=== PATIENT | female | born 1990 | race Hispanic/Latino ===

== ENCOUNTER 2022-05-14 10:39 | Inpatient (IN) | payer BC ==
[2022-05-14] MEDS ORDERED: Betamet Acet/Betamet Na Ph 30 MG/5 ML VIAL ONE (11:25)
[2022-05-14] MEDS ORDERED: hydrALAZINE 20 MG/ML VIAL ONE (11:26)
[2022-05-14] MEDS ORDERED: Magnesium Sulfate 20 gm/500 ml 20 GM/500 ML BAG ONE (11:26)
[2022-05-14] MEDS ORDERED: hydrALAZINE 20 MG/ML VIAL SLOW IVP PRN ×2 (11:34)
[2022-05-14] MEDS ORDERED: Acetaminophen 500 MG TAB PO PRN (11:34)
[2022-05-14] MEDS ORDERED: Ondansetron PF 4 MG/2 ML Vial IVP PRN (11:34)
[2022-05-14] MEDS ORDERED: Calcium Gluc 4.6 MEQ/10 ML (100 MG/ML) SLOW IVP PRN (11:34)
[2022-05-14] MEDS ORDERED: Butorphanol Tartrate 1 MG/ML VIAL SLOW IVP PRN (11:34)
[2022-05-14] MEDS ORDERED: Lorazepam 2 MG/ML VIAL SLOW IVP PRN (11:34)
[2022-05-14] MEDS ORDERED: Promethazine HCl 25 MG/ML VIAL IM PRN (11:34)
[2022-05-14] MEDS ORDERED: Labetalol HCl 100 MG/20 ML VIAL SLOW IVP PRN (11:34)
[2022-05-14 12:20] LABS: Hemoglobin 12.4 g/dL (12.0-15.5); Mean Corpuscular HGB CONC 35.4 g/dL (32.0-36.0); Mean Corpuscular Hemoglobin 30.5 pg (27.0-33.0); Mean Platelet Volume 12.4 fl (7.4-10.4); Platelet Count 203 10x3/uL (150-450); Red Blood Cell (RBC) Count 4.07 10x6/uL (3.90-5.03); White Blood Cell (WBC) Count 7.7 10x3/uL (3.5-10.5)
[2022-05-14 12:34] LABS: ALT (SGPT) 21 U/L (8-55); AST (SGOT) 23 U/L (5-34); Albumin 3.7 g/dL (3.5-5.0); Alkaline Phosphatase 98 U/L (40-110); Anion Gap 14 mmol/L (10-20); BUN (Urea Nitrogen) 14 mg/dL (7.0-18.7); Bilirubin, Total 0.2 mg/dL (0.2-1.2); Calc. Creatinine Clearance 0 mL/min (70-130); Calcium 9.8 mg/dL (7.8-10.44); Carbon Dioxide 21 mmol/L (22-29); Chloride 108 mmol/L (98-107); Estimated GFR 123; Globulin 3.2 g/dL (2.4-3.5); Glucose 78 mg/dL (70-105); Potassium 4.3 mmol/L (3.5-5.1); Protein, Total 6.9 g/dL (6.0-8.3); Sodium 139 mmol/L (136-145)
[2022-05-14 12:55] LABS: Syphilis Antibody Nonreactive (Nonreactive); Syphilis Antibody Index 0.04 S/CO (<1.00 Non-Reactive)
[2022-05-14 13:40] LABS: HBSAg Index 0.28 S/CO (0-0.99); Hep B Surf Ag Non-Reactive S/CO (NonReactive)
[2022-05-14 16:43] LABS: Amphetamine Not Detected (NotDetected); Barbiturates Screen Not Detected (NotDetected); Benzodiazepine Screen Not Detected (NotDetected); Cocaine Metabolite Screen Not Detected (NotDetected); Methadone Not Detected (NotDetected); Methamphetamine Not Detected (NotDetected); Opiate Screen Not Detected (NotDetected); Oxycodone Screen Not Detected (NotDetected); Phencyclidine (PCP) Not Detected (NotDetected); THC/Cannabinoid Screen Not Detected (NotDetected); Tricyclic Screen Not Detected (NotDetected)
[2022-05-14] MEDS: Magnesium Sulfate 20 gm/500 ml 20 GM/500 ML BAG IVPB SCH (20:48)
[2022-05-14 21:01] LABS: Bilirubin Neg (Negative); Blood, Urine 250 (Negative); Glucose, Urine (Dipstick) Normal (Negative); Ketone, Urine 15 mg/dL (Negative); Leukocyte 100 (Negative); Nitrite Negative (Negative); Protein, Urine (Dipstick) 30 mg/dl (Neg-Trace); Urobilinogen Normal mg/dL (Less than 2)
[2022-05-14 21:03] LABS: Clarity Slightly Cloudy (Clear); Urine Culture Reflex No No
[2022-05-14 21:13] LABS: Bacteria/HPF None Seen HPF (None Seen); RBC/HPF 21-50 HPF (0-3); Squamous Epithelial 0-3 HPF (0-3); WBC/HPF 0-3 HPF (0-3)
[2022-05-14 21:32] LABS: #Monocytes 0.2 10x3/uL (0.0-1.1); #Neutrophils 9.2 10x3/uL (1.5-8.4); %Basophils 0.1 % (0.0-2.0); %Lymphocytes 11.8 % (18.0-47.0); %Monocytes 1.4 % (0.0-10.0); %Neutrophils 86.1 % (40.0-75.0); Hemoglobin 13.1 g/dL (12.0-15.5); Mean Corpuscular HGB CONC 34.9 g/dL (32.0-36.0); Mean Platelet Volume 11.8 fl (7.4-10.4); Platelet Count 224 10x3/uL (150-450); RBC Distribution Width 14.2 % (11.5-14.5); Red Blood Cell (RBC) Count 4.36 10x6/uL (3.90-5.03); White Blood Cell (WBC) Count 10.7 10x3/uL (3.5-10.5)
[2022-05-14 21:51] LABS: ALT (SGPT) 20 U/L (8-55); AST (SGOT) 23 U/L (5-34); Albumin 3.8 g/dL (3.5-5.0); Alkaline Phosphatase 100 U/L (40-110); Anion Gap 15 mmol/L (10-20); BUN (Urea Nitrogen) 9 mg/dL (7.0-18.7); Bilirubin, Total 0.2 mg/dL (0.2-1.2); Calc. Creatinine Clearance 0 mL/min (70-130); Calcium 8.4 mg/dL (7.8-10.44); Carbon Dioxide 17 mmol/L (22-29); Chloride 104 mmol/L (98-107); Estimated GFR 124; Globulin 3.5 g/dL (2.4-3.5); Glucose 103 mg/dL (70-105); Potassium 3.9 mmol/L (3.5-5.1); Protein, Total 7.3 g/dL (6.0-8.3); Sodium 132 mmol/L (136-145)
[2022-05-14 22:03] VITALS: BMI 32.1
[2022-05-14 22:05] LABS: D-Dimer Test 0.98 mg/L FEU (0.19-0.50); INR-International Normal Ratio 0.8; PTT 24.8 sec (22.0-33.0); Prothrombin Time 8.8 sec (9.5-12.1)
[2022-05-14 22:16] LABS: SARS-CoV-2 NAA Rapid Test Not Detected (NotDetected)
[2022-05-15] MEDS: Lactated Ringer's 1,000 ML IV SCH ×2 (00:04→00:08)
[2022-05-15] MEDS: Betamet Acet/Betamet Na Ph 30 MG/5 ML VIAL IM SCH ×2 (00:04→13:52)
[2022-05-15] MEDS: Magnesium Sulfate 20 gm/500 ml 20 GM/500 ML BAG IVPB SCH (07:12)
[2022-05-15 13:49] LABS: Magnesium 5.8 mg/dL (1.6-2.6)
[2022-05-15] MEDS ORDERED: Dextrose 50% Abboject 50 ML SYRINGE SLOW IVP PRN (18:24)
[2022-05-15] MEDS ORDERED: Dextrose 5% in Water 1,000 ML IV PRN (18:24)
[2022-05-15] MEDS ORDERED: HumaLOG 300 UNITS/3 ML VIAL SC PRN (18:24)
[2022-05-15] MEDS ORDERED: Zolpidem Tartrate 5 MG TAB PO SCH (22:15)
[2022-05-16] MEDS: Magnesium Sulfate 20 gm/500 ml 20 GM/500 ML BAG IVPB SCH ×2 (00:53→19:31)
[2022-05-16] MEDS ORDERED: CEFAZOLIN 2 GM VIAL ONE (09:34)
[2022-05-16] MEDS ORDERED: Sodium Chloride 0.9% 100 ML ONE (09:35)
[2022-05-16] MEDS ORDERED: Famotidine/PF 20 mg/2ml Vial ONE (10:34)
[2022-05-16] MEDS: Lactated Ringer's 1,000 ML IV SCH (10:40)
[2022-05-16] MEDS ORDERED: Morphine PF 10 MG/10 ML VIAL ONE (11:46)
[2022-05-16] MEDS ORDERED: Oxytocin 10 UNITS/ML VIAL ONE (11:47)
[2022-05-16] MEDS ORDERED: Ondansetron PF 4 MG/2 ML Vial ONE (11:47)
[2022-05-16] MEDS ORDERED: ePHEDrine Sulfate 50 MG/10 ML VIAL ONE (11:47)
[2022-05-16] MEDS ORDERED: PHENYLEPHRINE-NS 100 MCG/ML 10 ML SYRINGE ONE (11:47)
[2022-05-16] MEDS ORDERED: Ketorolac Tromethamine 30 MG/ML VIAL ONE (11:47)
[2022-05-16] MEDS ORDERED: Phenylephrine 40 MG/NS 250 ML 250 ML ONE (11:47)
[2022-05-16] MEDS ORDERED: Fentanyl 100 MCG/2 ML VIAL ONE (12:21)
[2022-05-16 12:37] LABS: RapidComm Collect By CBN
[2022-05-16 12:40] LABS: RapidComm Collect By CBN; pH (Cord, venous) 7.407 (7.250-7.350)
[2022-05-16] MEDS ORDERED: Fentanyl 100 MCG/2 ML VIAL SLOW IVP PRN (13:22)
[2022-05-16] MEDS ORDERED: Promethazine HCl 25 MG/ML VIAL IM PRN (13:22)
[2022-05-16] MEDS ORDERED: Meperidine HCl/PF 25 MG/ML VIAL SLOW IVP PRN (13:22)
[2022-05-16] MEDS ORDERED: Naloxone HCl 0.4 mg/ml Vial IV PRN (13:22)
[2022-05-16] MEDS ORDERED: Moisturizing Cream (Eucerin) 113 GM JAR TOP PRN (13:22)
[2022-05-16] MEDS ORDERED: Ondansetron PF 4 MG/2 ML Vial IVP PRN (13:22)
[2022-05-16] MEDS ORDERED: Promethazine HCl 25 MG SUPP PR PRN (13:22)
[2022-05-16] MEDS ORDERED: diphenhydrAMINE 50 MG/ML VIAL IVP PRN (13:22)
[2022-05-16] MEDS ORDERED: Ondansetron HCl/PF 4 MG/2 ML Vial IVP PRN (13:22)
[2022-05-16] MEDS ORDERED: Naloxone HCl 0.4 mg/ml Vial IVP PRN ×2 (13:22)
[2022-05-16] MEDS ORDERED: Communication Order-Pharmacy FS SCH (13:30)
[2022-05-16] MEDS ORDERED: Sodium Chloride 0.9% 500 ML IVPB SCH (18:00)
[2022-05-16] MEDS ORDERED: Ketorolac Tromethamine 30 MG/ML VIAL IVP SCH (18:30)
[2022-05-17] MEDS: Ketorolac Tromethamine 30 MG/ML VIAL IVP PRN ×3 (00:02→12:29)
[2022-05-17 04:43] LABS: Mean Corpuscular HGB CONC 34.1 g/dL (32.0-36.0); Mean Corpuscular Hemoglobin 30.7 pg (27.0-33.0); Mean Corpuscular Volume 90.1 fl (81.6-98.3); Mean Platelet Volume 11.9 fl (7.4-10.4); Platelet Count 143 10x3/uL (150-450); RBC Distribution Width 14.6 % (11.5-14.5); Red Blood Cell (RBC) Count 2.93 10x6/uL (3.90-5.03); White Blood Cell (WBC) Count 9.5 10x3/uL (3.5-10.5)
[2022-05-17] MEDS: NIFEdipine XL 30 MG TAB PO SCH (09:11)
[2022-05-17] MEDS ORDERED: hydrALAZINE 20 MG/ML VIAL SLOW IVP PRN (13:02)
[2022-05-17] MEDS ORDERED: Ondansetron PF 4 MG/2 ML Vial IVP PRN (13:02)
[2022-05-17] MEDS ORDERED: Boostrix 0.5 ML (Tdap) VIAL (>/=7 yrs of age) IM ONE (13:02)
[2022-05-17] MEDS ORDERED: Bisacodyl 10 MG SUPP PR PRN (13:02)
[2022-05-17] MEDS ORDERED: Lanolin Ointment 7 GM TUBE TOP PRN (13:02)
[2022-05-17] MEDS ORDERED: diphenhydrAMINE 25 MG CAP PO PRN (13:02)
[2022-05-17] MEDS ORDERED: Promethazine HCl 25 MG/ML VIAL IM PRN (13:02)
[2022-05-17] MEDS ORDERED: HYDROcodone/Acetaminophen 5/325 mg Tablet PO PRN (13:02)
[2022-05-17] MEDS ORDERED: Acetaminophen 325 MG TAB PO PRN (13:02)
[2022-05-17] MEDS ORDERED: Docusate 100 MG CAP PO SCH (13:15)
[2022-05-17] MEDS ORDERED: Ferrous Sulfate 325 MG TAB PO SCH (13:15)
[2022-05-17] MEDS ORDERED: Prenatal Vitamin 1 TAB PO SCH (13:15)
[2022-05-17] MEDS: Docusate 100 MG CAP PO SCH (20:42)
[2022-05-17] MEDS: Ibuprofen 800 MG TAB PO SCH (20:42)
[2022-05-17] MEDS: HYDROcodone/Acetaminophen 5/325 mg Tablet PO PRN (20:43)
[2022-05-17] MEDS: Ferrous Sulfate 325 MG TAB PO SCH (20:53)
[2022-05-18] MEDS: HYDROcodone/Acetaminophen 5/325 mg Tablet PO PRN ×5 (02:20→19:59)
[2022-05-18] MEDS: Ibuprofen 800 MG TAB PO SCH ×3 (04:35→19:58)
[2022-05-18 05:46] LABS: Hemoglobin 10.4 g/dL (12.0-15.5); Mean Corpuscular HGB CONC 33.4 g/dL (32.0-36.0); Mean Corpuscular Hemoglobin 30.1 pg (27.0-33.0); Mean Corpuscular Volume 89.9 fl (81.6-98.3); Mean Platelet Volume 11.5 fl (7.4-10.4); Platelet Count 174 10x3/uL (150-450); RBC Distribution Width 14.6 % (11.5-14.5); Red Blood Cell (RBC) Count 3.46 10x6/uL (3.90-5.03); White Blood Cell (WBC) Count 12.9 10x3/uL (3.5-10.5)
[2022-05-18] MEDS: Simethicone Chewable 80 MG TAB PO PRN ×2 (06:19→20:00)
[2022-05-18] MEDS: Ferrous Sulfate 325 MG TAB PO SCH ×2 (07:41→19:59)
[2022-05-18] MEDS: Lactated Ringer's 1,000 ML IV SCH ×2 (07:43→07:44)
[2022-05-18] MEDS: Docusate 100 MG CAP PO SCH ×2 (08:59→19:58)
[2022-05-18] MEDS: NIFEdipine XL 30 MG TAB PO SCH (08:59)
[2022-05-18] MEDS ORDERED: NIFEdipine XL 30 MG TAB PO SCH (13:00)
[2022-05-18] MEDS ORDERED: Labetalol HCl 200 MG TAB PO SCH (21:15)
[2022-05-19] MEDS: HYDROcodone/Acetaminophen 5/325 mg Tablet PO PRN ×3 (02:16→17:58)
[2022-05-19] MEDS: Ibuprofen 800 MG TAB PO SCH ×3 (04:10→17:58)
[2022-05-19] MEDS: Labetalol HCl 200 MG TAB PO SCH ×2 (08:11→21:53)
[2022-05-19] MEDS: Docusate 100 MG CAP PO SCH ×2 (08:11→21:53)
[2022-05-19] MEDS: Prenatal Vitamin 1 TAB PO SCH (08:11)
[2022-05-19] MEDS: NIFEdipine XL 60 MG TAB PO SCH (08:11)
[2022-05-19] MEDS: Ferrous Sulfate 325 MG TAB PO SCH ×2 (08:11→20:52)
[2022-05-20] MEDS: HYDROcodone/Acetaminophen 5/325 mg Tablet PO PRN ×2 (00:51→15:21)
[2022-05-20] MEDS: Ibuprofen 800 MG TAB PO SCH ×2 (05:21→11:37)
[2022-05-20] MEDS: Ferrous Sulfate 325 MG TAB PO SCH (08:38)
[2022-05-20] MEDS: NIFEdipine XL 60 MG TAB PO SCH (09:47)
[2022-05-20] MEDS: Simethicone Chewable 80 MG TAB PO PRN (09:47)
[2022-05-20] MEDS: Docusate 100 MG CAP PO SCH (09:47)
[2022-05-20] MEDS: Labetalol HCl 200 MG TAB PO SCH (09:47)
[2022-05-20] MEDS: Prenatal Vitamin 1 TAB PO SCH (09:47)
[2022-05-20 11:39] VITALS: BP 146/86; TEMP 99
== END 2022-05-20 16:00 | disposition home or self-care (01) | DRG 788 ==
LOC: CSHLD 10:39 → CSHPP 05-17 17:05
PROVIDERS: ADMIT Student in an Organized Health Care Education/Training Program; ATTEND Student in an Organized Health Care Education/Training Program
PROC: 10D00Z1 Extraction of Products of Conception, Low, Open Approach (ICD-10-PCS; principal; 2022-05-16)
DX: O36.5930 Maternal care for other known or suspected poor fetal growth, third trimester, not applicable or unspecified (principal); Z3A.32 32 weeks gestation of pregnancy; Z37.0 Single live birth; O14.14 Severe pre-eclampsia complicating childbirth; O24.425 Gestational diabetes mellitus in childbirth, controlled by oral hypoglycemic drugs; Z79.84 Long term (current) use of oral hypoglycemic drugs; O76 Abnormality in fetal heart rate and rhythm complicating labor and delivery; Z20.822 Contact with and (suspected) exposure to COVID-19; Z91.041 Radiographic dye allergy status; Z91.018 Allergy to other foods
CPT/HCPCS: 36415; 36416; 51702; 76815; 76819; 80053; 80306; 81001; 82570; 82805; 83735; 84156; 85027; 85049; 85300; 85362; 85379; 85384; 85610; 85730; 86780; 86850; 86900; 86901; 87086; 87340; 88307; J0360; J0702; J1885; J2274; J2405; J2590; J3010; J3475; J7120; S0028; U0002

== ENCOUNTER 2022-07-28 04:54 | Emergency (ER) | payer BC ==
[2022-07-28] MEDS ORDERED: Ketorolac Tromethamine 30 MG/ML VIAL ONE ×2 (05:17→13:22)
[2022-07-28] MEDS ORDERED: Ondansetron PF 4 MG/2 ML Vial ONE ×2 (05:17→14:54)
[2022-07-28 05:29] LABS: Bilirubin Neg (Negative); Blood, Urine Negative (Negative); Clarity Clear (Clear); Glucose, Urine (Dipstick) Normal (Negative); Ketone, Urine Negative (Negative); Leukocyte Negative (Negative); Nitrite Negative (Negative); Protein, Urine (Dipstick) 15 mg/dl (Neg-Trace); Specific Gravity, Urine 1.005 (1.005-1.030); Urobilinogen Normal mg/dL (Less than 2)
[2022-07-28 05:36] LABS: #Eosinphils 0.2 10x3/uL (0.0-0.5); #Monocytes 0.7 10x3/uL (0.0-1.1); #Neutrophils 4.2 10x3/uL (1.5-8.4); %Basophils 0.4 % (0.0-2.0); %Eosinophils 2.6 % (0.0-6.0); %Monocytes 8.5 % (0.0-10.0); %Neutrophils 54.2 % (40.0-75.0); Hemoglobin 12.5 g/dL (12.0-15.5); Mean Corpuscular HGB CONC 34.6 g/dL (32.0-36.0); Mean Corpuscular Hemoglobin 29.5 pg (27.0-33.0); Mean Corpuscular Volume 85.1 fl (81.6-98.3); Mean Platelet Volume 10.9 fl (7.4-10.4); Platelet Count 337 10x3/uL (150-450); RBC Distribution Width 12.4 % (11.5-14.5); Red Blood Cell (RBC) Count 4.24 10x6/uL (3.90-5.03); White Blood Cell (WBC) Count 7.8 10x3/uL (3.5-10.5)
[2022-07-28 05:45] LABS: ALT (SGPT) 880 U/L (8-55); AST (SGOT) 600 U/L (5-34); Albumin 4.3 g/dL (3.5-5.0); Alkaline Phosphatase 296 U/L (40-110); Anion Gap 16 mmol/L (10-20); BUN (Urea Nitrogen) 10 mg/dL (7.0-18.7); Bilirubin, Total 2.4 mg/dL (0.2-1.2); Calc. Creatinine Clearance 0 mL/min (70-130); Calcium 9.8 mg/dL (7.8-10.44); Carbon Dioxide 21 mmol/L (22-29); Chloride 105 mmol/L (98-107); Estimated GFR 105; Globulin 3.6 g/dL (2.4-3.5); Glucose 122 mg/dL (70-105); Lipase 36 U/L (8-78); Potassium 3.3 mmol/L (3.5-5.1); Protein, Total 7.9 g/dL (6.0-8.3); Sodium 139 mmol/L (136-145)
[2022-07-28] MEDS ORDERED: Morphine 4 MG/ML VIAL ONE (06:01)
[2022-07-28] MEDS ORDERED: Piperacillin/Tazobactam 4.5 GM VIAL ONE (06:02)
[2022-07-28 07:13] LABS: SARS-CoV-2 NAA Rapid Test Not Detected (NotDetected)
[2022-07-28] MEDS ORDERED: TETANUS, DIPHTHERIA TOX,ADULT (TDVAX) 0.5 ML VIAL IM ONE (08:33)
[2022-07-28] MEDS ORDERED: hydrALAZINE 20 MG/ML VIAL SLOW IVP PRN (08:33)
[2022-07-28] MEDS ORDERED: Morphine 2 MG/ML VIAL SLOW IVP PRN (08:33)
[2022-07-28] MEDS ORDERED: Morphine 4 MG/ML VIAL SLOW IVP PRN (08:33)
[2022-07-28] MEDS ORDERED: Ketorolac Tromethamine 30 MG/ML VIAL IVP PRN (08:37)
[2022-07-28] MEDS ORDERED: Ondansetron ORAL SOLN. 4 MG/5 ML UDCUP PO PRN (08:37)
[2022-07-28] MEDS ORDERED: Ondansetron ODT 8 MG TAB SL PRN (08:37)
[2022-07-28] MEDS ORDERED: Ondansetron PF 4 MG/2 ML Vial IVP PRN (08:37)
[2022-07-28] MEDS ORDERED: Ondansetron ODT 4 MG TAB PO PRN (08:45)
[2022-07-28] MEDS ORDERED: Ketorolac Tromethamine 30 MG/ML VIAL IVP SCH (08:45)
[2022-07-28] MEDS ORDERED: Piperacillin/Tazobactam 3.375 GM in Sodium Chloride 0.9% 100 ML IVPB SCH ×2 (08:45→14:30)
[2022-07-28] MEDS ORDERED: D5 1/2 NS w/20 mEq KCL 1,000 ML IV SCH (08:45)
[2022-07-28 13:17] LABS: BHCG - Serum Negative (NEGATIVE); Pregs Control Background? CLEAR/WHITE (CLR/WHITE); Pregs Control Bar Appear? YES (CONTROL BAR)
[2022-07-28] MEDS ORDERED: Scopolamine 1.5 mg/72 hour Patch ONE (13:22)
[2022-07-28] MEDS ORDERED: Fentanyl 100 MCG/2 ML VIAL ONE (14:06)
[2022-07-28] MEDS ORDERED: PROPOFOL 20 ML ONE (14:06)
[2022-07-28] MEDS ORDERED: Lidocaine 1% PF 5 ML VIAL ONE (14:07)
[2022-07-28] MEDS ORDERED: Rocuronium Bromide 10 MG/ML (10ML VIAL) ONE (14:07)
[2022-07-28] MEDS ORDERED: EPINEPHrine 1 MG/ML AMP ONE (14:17)
[2022-07-28] MEDS ORDERED: Bupivacaine PF 0.5% 30 ML VIAL ONE (14:17)
[2022-07-28] MEDS ORDERED: Iopamidol 30 ML ONE (14:18)
[2022-07-28] MEDS ORDERED: Glycopyrrolate 0.2 MG/ML 5 ML SYRINGE ONE ×2 (14:40→15:01)
[2022-07-28] MEDS ORDERED: ePHEDrine Sulfate 50 MG/10 ML VIAL ONE (14:43)
[2022-07-28] MEDS ORDERED: Dexamethasone 20 MG/5 ML VIAL ONE (14:54)
[2022-07-28] MEDS ORDERED: SUGAMMADEX SODIUM 200 MG/2 ML VIAL ONE (15:09)
[2022-07-28] MEDS ORDERED: Ibuprofen 600 MG TAB PO PRN (15:11)
[2022-07-28] MEDS ORDERED: Acetaminophen 500 MG TAB PO PRN (15:11)
[2022-07-28] MEDS ORDERED: Acetaminophen 500 MG TAB PO SCH (15:15)
[2022-07-28] MEDS ORDERED: HYDROcodone/Acetaminophen 5/325 mg Tablet ONE (16:32)
[2022-07-28] MEDS ORDERED: Enoxaparin Sodium 40 MG/0.4 ML SYRINGE SC SCH (21:00)
[2022-07-31] MEDS ORDERED: Scopolamine 1.5 mg/72 hour Patch TD SCH (13:30)
== END 2022-07-28 12:42 | disposition admitted as inpatient to this hospital (09) ==
LOC: CSHERS 04:54
DX: K81.0 Acute cholecystitis (principal); Z20.822 Contact with and (suspected) exposure to COVID-19
CPT/HCPCS: 47532; 76705; 80053; 81003; 83690; 84703; 85025; 88304; 96374; 96375; C1889; J0171; J1100; J1610; J1885; J2270; J2405; J2543; J2704; J3010; J3490; Q9967; S0020; U0002